=== PATIENT | female | born 1960 | race Caucasian/White ===

== ENCOUNTER 2017-04-21 09:12 | Day surgery (SDC) | payer BC ==
[~2017-04-21 09:12] MED LIST: RINGERS SOLUTION,LACTATED 1,000 ML IV PRN; ceFAZolin SODIUM 2 GM in DEXTROSE 5 % IN WATER 50 ML IV PRN
[2017-04-21] MEDS ORDERED: RINGERS SOLUTION,LACTATED 1,000 ML IV ONE (09:39)
[2017-04-21] MEDS ORDERED: BUPIVACAINE HCL/EPINEPHRINE 50 ML VIAL IJ ONE ×2 (10:31→10:35)
[2017-04-21] MEDS ORDERED: MUPIROCIN 22 APPL TUBE TP ONE (10:31)
[2017-04-21] MEDS ORDERED: RINGERS SOLUTION,LACTATED 1,000 ML IV PRN (11:07)
[2017-04-21] MEDS ORDERED: oxyCODONE HCL/ACETAMINOPHEN 1 TAB TABLET PO ONE (11:30)
[2017-04-21 12:37] VITALS: BP 118/82
--- NOTE | 2017-04-21 13:21 | OR ---
Operative Report - Dictated Report Narrative: OPERATIVE REPORT DATE OF OPERATION: 04/21/2017 PREOPERATIVE DIAGNOSIS: Hidradenitis of the right groin POSTOPERATIVE DIAGNOSIS: Same (pathology pending) OPERATION: Excision lesion right groin (approximate size 2 x 4 cm) SURGEON: Radha Goodman MD ANESTHESIA: MAC/local Shahram Oneill CRNA INDICATIONS FOR PROCEDURE: The patient is a 56-year-old female with apparent hidradenitis of the right groin. The area has become quiescent with antibiotics , however her liver function studies are elevated and she cannot be on suppressive therapy. FINDINGS: Apparent complete gross excision (pathology pending) NARRATIVE OF PROCEDURE: The patient was identified in the holding area. The surgical site was marked. Prior to the administration of anesthetic a multidisciplinary timeout was observed. The patient was placed supine, SCDs were applied, and intravenous sedation administered. The patient's right leg was placed in a stirrup and the perineum prepped with Betadine solution. The right groin was isolated with 4 sterile towels. The remainder of the patient was covered with a sterile disposable drape. An elliptical skin incision was outlined with a marking pen to include a margin of normal-appearing skin. The area was infiltrated with 0.5% Marcaine with epinephrine. The skin incision was made sharply. Dissection was carried into normal appearing subcutaneous tissue with electrocautery until the area was excised cleanly. The specimen was oriented with sutures for pathology. The base of the wound was inspected for hemostasis which appeared complete. After receiving a correct sponge needle and instrument count attention was turned to closing the wound. Subcutaneous tissue was approximated with interrupted sutures of 2-0 chromic the skin was approximated with a running subcuticular suture of 4-0 Vicryl. The operative site was washed and dried. A dressing of folded 4 x 4 and Medipore tape was applied. The operative procedure was terminated at this point. The patient tolerated the anesthetic and procedure well without complication. There was no measurable blood loss. The patient was transferred to the ambulatory surgery area awake and in stable condition. The patient remained stable throughout a period of postoperative observation. She denied incisional discomfort. She was able to tolerate po intake and was up without assistance. I shared the operative findings with her. She was discharged home with instructions to keep the area dry and covered for 48 hours but then she may shower and change the dressing as needed. She was given phone numbers to call prn signs of wound infection or hematoma. She was given a prescription for Percocet 5/325 mg #20 1-2 po Q4-6hrs prn pain. A return office appointment will be made when she is contacted with her pathology report. Reviewed and electronically signed
== END 2017-04-21 09:13 | disposition home or self-care (01) ==
LOC: AMB 09:12
PROVIDERS: ATTEND Surgery
PROC: 0JBC0ZZ Excision of Pelvic Region Subcutaneous Tissue and Fascia, Open Approach (ICD-10-PCS; principal; 2017-04-21 10:15)
DX: L73.2 Hidradenitis suppurativa (principal); L72.0 Epidermal cyst; I10 Essential (primary) hypertension; E78.5 Hyperlipidemia, unspecified; D64.9 Anemia, unspecified; F41.1 Generalized anxiety disorder; Z87.891 Personal history of nicotine dependence; Z68.25 Body mass index [BMI] 25.0-25.9, adult

== ENCOUNTER 2020-02-27 11:12 | Observation (INO) ==
[2020-02-27] MEDS ORDERED: NORMAL SALINE 1,000 ML IV ONE ×2 (11:44→13:19)
--- NOTE | 2020-02-27 11:49 | ERNOTE ---
Medical Problem HPI - Narrative Date of Service: 02/27/20 - General Chief Complaint: Nausea/Vomiting Time Seen by Provider: 02/27/20 11:27 Source: patient, RN notes reviewed, old records Exam Limitations: no limitations - Immun/Allergies/Home Medications Immunizations: IMMUNIZATION HX Immunizations Up to Date Yes History of Influenza Vaccine Yes Hx Pneumococcal Vaccination No Allergies/Adverse Reactions: Allergies Sulfa (Sulfonamide Antibiotics) Allergy (Intermediate, Verified 02/27/20 11:23) Shortness of Breath acetaminophen [From Percocet] Adverse Reaction (Mild, Verified 02/27/20 11:23) Itching oxycodone [From Percocet] Adverse Reaction (Mild, Verified 02/27/20 11:23) Itching Penicillins Adverse Reaction (Mild, Verified 02/27/20 11:23) Itching Home Medications: HOME MEDICATIONS Aspirin [Aspirin EC] 81 mg PO DAILY 04/18/17 [Last Taken Unknown] Cholecalciferol (Vitamin D3) [Vitamin D3] 1,000 unit PO DAILY 04/18/17 [Last Taken Unknown] Loratadine [Claritin] 10 mg PO DAILY 04/18/17 [Last Taken Unknown] Multivitamins [Multivitamin Meredith] 1 cap PO DAILY 04/18/17 [Last Taken Unknown] [place]-3S/Dha/Epa/Fish Oil [Fish Oil 1,200 mg Softgel] 1 ea PO DAILY 08/22/17 [Last Taken Unknown] alprazolam 1 mg tablet 1 mg PO TID PRN #90 tab 07/26/19 [Last Taken Unknown] rosuvastatin 10 mg tablet 10 mg PO DAILY #30 tab 11/15/19 [Last Taken Unknown] - Pain Score Pain Score #1 Pain Score: 0 - History of Present History Narrative: Korin is a 59-year-old female who initially presented to the walk-in clinic for vomiting and tremors but was sent to the emergency department. She reports that her symptoms began approximately 2 weeks ago. She states that she vomits usually just once a day and has no appetite. She reports that she is still trying to eat and has still been having formed bowel movements. She denies any abdominal pain. She reports that she has been checking her temperature and has been afebrile. She states that her tremor seemed worse yesterday than they had been but became severe today. She was laid off from her job at about the time her symptoms began. She states that she has felt depressed. She has not had any changes in medication and denies any sick contacts. Timing: getting worse Review of Systems - Review of Systems Constitutional: Present: fatigue, malaise. Absent: fever, chills EYE: Absent: eye pain, eye discharge ENT: Present: nasal drainage. Absent: ear pain, nose congestion, sore throat Respiratory: Absent: shortness of breath, cough Cardiology: Absent: chest pain, palpitations Gastrointestinal/Abdominal: Present: nausea, vomiting. Absent: diarrhea, constipation, abdominal pain Genitourinary: Absent: dysuria, hematuria Musculoskeletal: Absent: muscle pain, joint pain Skin: Absent: rash, lesions Neurological: Absent: headache, dizziness/light-headedness Endocrine: Present: no symptoms reported Hematologic/Lymphatic: Absent: easy bruising, easy bleeding Psych: Present: depressed. Absent: anxiety Medical History (Last Reviewed 02/27/20 @ 11:48 by Moriah Martines NP) Hypertension (Chronic) Onset Date: ~01/15/14 Hyperlipidemia (Chronic) Onset Date: ~01/15/14 Anxiety Onset Date: Unknown Elevated ALT measurement Onset Date: 10/26/16 Patient was taking terbinafine at time of lab draw. Elevated aspartate aminotransferase level Onset Date: 10/26/16 Patient was taking terbinafine at time of lab draw. Sleep disturbance Onset Date: Unknown Endometriosis Onset Date: ~1993 History of barium enema Onset Date: 09/15/17 Dr. Jersey Blankenship, [facility]. Diverticulosis, moderate tortuosity and elongation of the colonic segments. Tinea unguium Onset Date: ~10/26/16 Surgical History: Surgical History (Last Reviewed 02/27/20 @ 11:48 by Moriah Martines NP) History of adenoidectomy Onset Date: ~1978 History of section History of colonoscopy Onset Date: 09/15/17 Dr. Jersey Blankenship, [facility]. Incomplete. Tortuous colon, Diverticulosis. Barium enema-negative. History of excision of epidermal inclusion cyst Onset Date: 04/21/17 Dr. Kelly Goodman, [facility]. Right groin; dermal inflammation consistent w/ hidradenitis, associated with multiple epidermal inclusion cysts. History of local excision of skin lesion Onset Date: 07/08/11 Right medial chest; dysplastic nevus. History of tonsillectomy Onset Date: ~1978 History of vaginal hysterectomy Onset Date: ~1994 Family History: Family History (Last Reviewed 02/27/20 @ 11:48 by Moriah Martines NP) Father Hypertension Obesity Prostate disease Pacemaker S/P CABG x 5 Brother CHF (congestive heart failure) Myocardial infarction CVA (cerebral vascular accident) Brother Alive and well x 1 Mother , age 62 Myocardial infarction x 3 Heart disease Hypertension Hyperlipemia DVT (deep venous thrombosis) CHF (congestive heart failure) COPD (chronic obstructive pulmonary disease) Family/Other Hyperlipemia Heart disease CVA (cerebral vascular accident) Hypertension Pacemaker Prostate disease Social History: (Last Reviewed 02/27/20 @ 11:48 by Moriah Martines NP) Social History: adopted: No usp: No Marital status: / household members: significant other number of children: 1 current occupational status: employed current occupation: [employer] Highest education level completed: Associate degree: academi Sexually Active: Yes Service: No Tobacco: Smoking Status: Former smoker Alcohol: alcohol intake: current alcohol intake frequency: a few times a week Dietary Habits: caffeine: No Physical Exam - Physical Exam General Appearance: Present: alert, mild distress, anxious, thin Head Exam: Present: normal inspection Eye Exam: Normal inspection: bilateral Neck: Present: normal inspection, nontender, supple, full range of motion. Absent: thyromegaly Respiratory: Present: no respiratory distress, normal breath sounds, no accessory muscle use, lungs clear Cardiovascular/Chest: Present: no murmur, normal peripheral pulses, tachycardia Gastrointestinal/Abdominal: Present: normal bowel sounds, nontender, nondistended, soft Back Exam: Present: normal inspection, normal range of motion, no CVA tenderness Extremity Exam: Present: normal inspection, normal range of motion, no edema Neurological Exam: Present: alert, oriented, normal mood/affect, no motor/sensory deficits, other - Severe tremors present Skin Exam: Present: warm/dry, pallor Progress - Results and Orders Patient's Lab Results:: I have reviewed the patient's lab results. Results and Orders: SARS-CoV-2 PCR test negative - Vital Signs Patient's Vital Signs:: I have reviewed the patient's vital signs. Vital Signs: Vital Signs 02/27/20 11:18 Temperature 36.5 C Pulse Rate 105 H Respiratory Rate 16 Blood Pressure 139/96 H O2 Sat by Pulse Oximetry 96 - Progress/Reassessment Chief Complaint: Nausea/Vomiting Progress:: Improved Progress Note-Subjective: 02/27/20 13:33 The patient has a normal white blood cell count but an elevated lactic acid. Her urine appears as though she has a urinary tract infection, although it is a contaminated specimen. A culture is pending. On further questioning she does admit to having some back pain, which would correlate with pyelonephritis. Her platelet count is 80. Her records do not indicate her having any issues with thrombocytopenia in the past. She also has mildly elevated liver function tests. An amylase and lipase were added to rule out pancreatitis. These were normal. I contacted Dr. Caceres who is the patient's primary care provider. He agreed to admit the patient. She will be started on Levaquin IV and she is going to get Zofran for her nausea as she did just vomit a short while ago. Her second lactic acid and blood cultures are pending. After discussing her lab work, Dr. Caceres and I agreed that she should be tested for COVID-19. She is currently being held in the emergency department pending that result. Departure Clinical Impression: Pyelonephritis, acute - Departure Disposition: Still a patient Condition: Stable Referrals: Josue Caceres DO [Primary Care Provider] -
[2020-02-27 11:56] LABS: Urine Bilirubin 3 mg/dl (NEGATIVE); Urine Blood 25 /ul (NEGATIVE); Urine Ketone 15 mg/dL (NEGATIVE); Urine Protein 100 mg/dL (NEGATIVE); Urine Specific Gravity >=1.030 SP.GR. (1.005-1.010); Urine pH 6.5 pH (5.0-7.0)
[2020-02-27 12:17] LABS: Hemoglobin 14.4 gm/dL (12.5-16.0); Mean Cell Volume 104.7 fl (78-100); Mean Corpuscular Hemoglobin 35.9 pg (27-31); Mean Corpuscular Hgb Conc 34.3 g/dl (32-36); Mean Platelet Volume 9.2 fl (8-12.5); Neutrophil # 5.3 K/mm3 (1.3-6.0); Neutrophil % 82.3 % (42-75.0); Red Blood Count 4.01 M/mm3 (4.2-5.4); Red Cell Distribution Width 14.2 % (11.5-14.0); White Blood Count 6.5 K/mm3 (4.0-10.5)
[2020-02-27 12:19] LABS: Platelet Count 80 K/mm3 (150-450)
[2020-02-27 12:27] LABS: Urine Appearance Cloudy (CLEAR); Urine Color Dark Yellow; Urine Nitrite Positive (NEGATIVE)
[2020-02-27 12:27] LABS: Albumin * 3.7 gm/dl (3.4-5.0); Anion Gap 16.8 mmol/L (6.8-13.8); BUN/Creatinine Ratio 10.1 (9.0-21.6); Bilirubin, Total 1.1 mg/dL (0.0-1.1); Ca. Corrected For Albumin 9.3 mg/dL (8.4-10.2); Calcium * 9.4 mg/dL (7.9-10.9); Carbon Dioxide 30.5 mmol/L (24-32.6); Potassium 3.3 mmol/L (3.4-4.6); T4 Free * 0.76 ng/dL (0.76-1.46); TSH * 1.563 uIU/mL (0.358-3.74); Total Protein 8.2 gm/dL (6.2-8.2)
[2020-02-27 12:28] LABS: Urine Bacteria 4+; Urine RBC 0-5 /hpf (0-5); Urine WBC 25-50 /hpf (0-5)
[2020-02-27 12:45] LABS: Amylase * 69 U/L (25-115); Lipase 378 U/L (73-393)
[2020-02-27] MEDS ORDERED: ONDANSETRON HCL/PF 2 MG/ML VIAL IV ONE (13:20)
[2020-02-27] MEDS ORDERED: LEVOFLOXACIN IN DEXTROSE 5 % 750 MG/150 ML BAG IV ONE (13:20)
[2020-02-27] MEDS ORDERED: ONDANSETRON HCL/PF 2 MG/ML VIAL IV PRN (16:08)
--- NOTE | 2020-02-27 16:13 | HP ---
Chief Complaint - Chief Complaint Date of Service: 02/27/20 Time of Service: 16:10 Chief Complaint: Nausea, vomiting, tremors History of Present Illness: Korin reports for the past two weeks she has had progressive nausea and vomiting. Emesis was recent food. She denies green or bloody emesis. She reports less bowel movements but no blood or black stool. She denies fever or chills but recently has had tremors. Food made her symptoms worse. She denies pain. No urinary frequency, urgency, or dysuria. No flank pain. No respiratory symptoms. In the ER her work up was positive for elevated liver enzymes 100-200 range and UA was suspicious of UTI. She as started on levaquin and give fluids. She was given zofran for nausea. Medical History (Last Reviewed 02/27/20 @ 16:03 by Jameson Narayan RN) Hypertension (Chronic) Onset Date: ~01/15/14 Hyperlipidemia (Chronic) Onset Date: ~01/15/14 Anxiety Onset Date: Unknown Elevated ALT measurement Onset Date: 10/26/16 Patient was taking terbinafine at time of lab draw. Elevated aspartate aminotransferase level Onset Date: 10/26/16 Patient was taking terbinafine at time of lab draw. Sleep disturbance Onset Date: Unknown Endometriosis Onset Date: ~1993 History of barium enema Onset Date: 09/15/17 Dr. Jersey Blankenship [facility]. Diverticulosis, moderate tortuosity and elongation of the colonic segments. Tinea unguium Onset Date: ~10/26/16 Surgical History: Surgical History (Last Reviewed 02/27/20 @ 16:03 by Jameson Narayan RN) History of adenoidectomy Onset Date: ~1978 History of section History of colonoscopy Onset Date: 09/15/17 [facility]. Incomplete. Tortuous colon, Diverticulosis. Barium enema-negative. History of excision of epidermal inclusion cyst Onset Date: 04/21/17 [facility]. Right groin; dermal inflammation consistent w/ hidradenitis, associated with multiple epidermal inclusion cysts. History of local excision of skin lesion Onset Date: 07/08/11 Right medial chest; dysplastic nevus. History of tonsillectomy Onset Date: ~1978 History of vaginal hysterectomy Onset Date: ~1994 Family History: Family History (Last Reviewed 02/27/20 @ 16:03 by Jameson Narayan RN) Father Hypertension Obesity Prostate disease Pacemaker S/P CABG x 5 Brother CHF (congestive heart failure) Myocardial infarction CVA (cerebral vascular accident) Brother Alive and well x 1 Mother , age 62 Myocardial infarction x 3 Heart disease Hypertension Hyperlipemia DVT (deep venous thrombosis) CHF (congestive heart failure) COPD (chronic obstructive pulmonary disease) Family/Other Hyperlipemia Heart disease CVA (cerebral vascular accident) Hypertension Pacemaker Prostate disease Social History: (Last Reviewed 02/27/20 @ 11:48 by Moriah Martines NP) Social History: adopted: No long-term: No Marital status: / household members: significant other number of children: 1 current occupational status: employed current occupation: [employer] Highest education level completed: Associate degree: academi Sexually Active: Yes Service: No Tobacco: Smoking Status: Former smoker Alcohol: alcohol intake: current alcohol intake frequency: a few times a week Dietary Habits: caffeine: No Review Of Systems (GEN) - Review of Systems Generalized/Overall Review: Present: Weakness. Absent: Chills, Fever EENTM: Present: No Symptoms Reported Respiratory: Absent: Cough, Shortness of Breath Cardiac: Absent: Chest Pain, Palpitations Abdominal: Present: Nausea, Vomiting. Absent: Hematemesis, Abdominal Pain, Constipation, Diarrhea, Melena, Bright blood from rectum Genitourinary: Absent: Burning, Itching, Urgency, Frequency, Hesitancy, Incontinent, Retention, Hematuria, Dysuria, Polyuria, Oliguria, Anuria Musculoskeletal: Absent: Joint Pain, Back Pain Neurological: Present: Anxiety. Absent: Headache Skin: Absent: Lesions, Lumps, Rash Endocrine: Present: No Symptoms Reported Immunizations: IMMUNIZATION HX Immunizations Up to Date Yes History of Influenza Vaccine Yes Hx Pneumococcal Vaccination No Allergies/Adverse Reactions: Allergies Allergy/AdvReac Type Severity Reaction Status Date / Time Sulfa (Sulfonamide Allergy Intermediate Shortness Verified 02/27/20 16:02 Antibiotics) of Breath acetaminophen [From Percocet] AdvReac Mild Itching Verified 02/27/20 16:02 oxycodone [From Percocet] AdvReac Mild Itching Verified 02/27/20 16:02 Penicillins AdvReac Mild Itching Verified 02/27/20 16:02 Home Medications: HOME MEDICATIONS Aspirin [Aspirin EC] 81 mg PO DAILY 04/18/17 [Last Taken 02/20/20] Cholecalciferol (Vitamin D3) [Vitamin D3] 1,000 unit PO DAILY 04/18/17 [Last Taken 02/20/20] Multivitamins [Multivitamin Meredith] 1 cap PO DAILY 04/18/17 [Last Taken 02/20/20] [place]-3S/Dha/Epa/Fish Oil [Fish Oil 1,200 mg Softgel] 1 ea PO DAILY 08/22/17 [Last Taken 02/20/20] alprazolam 1 mg tablet 1 mg PO TID PRN #90 tab 07/26/19 [Last Taken 02/27/20 08:00] rosuvastatin 10 mg tablet 10 mg PO DAILY #30 tab 11/15/19 [Last Taken 02/26/20 20:00] Exam - Exam Vital Signs: Vital Signs - Last Taken Temp 37.2 C 02/27/20 15:41 Pulse 97 02/27/20 15:41 Resp 20 02/27/20 15:41 BP 132/80 02/27/20 15:41 Pulse Ox 98 02/27/20 15:41 Constitutional: Present: Alert, Oriented x3, Cooperative, Other - rigor ENT Exam: Present: normal ENT inspection Eye Exam: bilateral eye: normal inspection Respiratory: Present: lungs clear, normal breath sounds Cardiovascular/Chest: Present: regular rate, rhythm, no murmur Peripheral Pulses: radial (R): 2+, radial (L): 2+ Abdomen: Present: Normal bowel sounds, soft, nontender, nondistended, no hepatospenomegaly Skin Exam: Present: normal color, warm/dry, no cyanosis Neurologic: Present: alert, normal mood/affect, oriented x 3 Eye contact: Present: cooperative, normal speech Thoughts: Present: normal thought pattern, no apparent hallucination Diagnostic Studies: Abnormal Lab Results 02/27/20 02/27/20 02/27/20 Range/Units 11:28 11:55 11:55 RBC 4.01 L (4.2-5.4) M/mm3 MCV 104.7 H (78-100) fl MCH 35.9 H (27-31) pg RDW 14.2 H (11.5-14.0) % Plt Count 80 L (150-450) K/mm3 Immature Gran % (Auto) 0.50 H (0.001-0.429) % Neutrophils % 82.3 H (42-75.0) % Lymphocytes % 8.2 L (20-51) % Lymphocytes # 0.53 L (1.5-3.5) k/mm3 Sodium 143 H (132-142) mmol/L Plasma Sodium 144 H (130-142) mmol/L Potassium 3.3 L (3.4-4.6) mmol/L Anion Gap 16.8 H (6.8-13.8) mmol/L Random Glucose 133 H (70-110) mg/dL Lactic Acid, Venous (0.4-2.0) mmol/L AST 249 H (0-48) U/L ALT 119 H (19-67) U/L Urine Protein 100 H (NEGATIVE) mg/dL Urine Blood 25 H (NEGATIVE) /ul Urine Nitrate Positive H (NEGATIVE) Urine Bilirubin 3 H (NEGATIVE) mg/dl Urine Ictotest Positive H (NEGATIVE) Prot Sulfosalicylic Acd 3+ H (0) mg/dL Urine Urobilinogen 2.0 H (NORMAL) EU/dl Urine WBC 25-50 H (0-5) /hpf Ur Epithelial Cells >25 H (0-5) /hpf Urine Bacteria 4+ H (NONE) 02/27/20 Range/Units 11:55 RBC (4.2-5.4) M/mm3 MCV (78-100) fl MCH (27-31) pg RDW (11.5-14.0) % Plt Count (150-450) K/mm3 Immature Gran % (Auto) (0.001-0.429) % Neutrophils % (42-75.0) % Lymphocytes % (20-51) % Lymphocytes # (1.5-3.5) k/mm3 Sodium (132-142) mmol/L Plasma Sodium (130-142) mmol/L Potassium (3.4-4.6) mmol/L Anion Gap (6.8-13.8) mmol/L Random Glucose (70-110) mg/dL Lactic Acid, Venous 2.2 H* (0.4-2.0) mmol/L AST (0-48) U/L ALT (19-67) U/L Urine Protein (NEGATIVE) mg/dL Urine Blood (NEGATIVE) /ul Urine Nitrate (NEGATIVE) Urine Bilirubin (NEGATIVE) mg/dl Urine Ictotest (NEGATIVE) Prot Sulfosalicylic Acd (0) mg/dL Urine Urobilinogen (NORMAL) EU/dl Urine WBC (0-5) /hpf Ur Epithelial Cells (0-5) /hpf Urine Bacteria (NONE) Laboratory Results WBC 6.5 K/mm3 (4.0-10.5) 02/27/20 11:55 RBC 4.01 M/mm3 (4.2-5.4) L 02/27/20 11:55 Hgb 14.4 gm/dL (12.5-16.0) 02/27/20 11:55 Hct 42.0 % (37.0-47.0) 02/27/20 11:55 MCV 104.7 fl (78-100) H 02/27/20 11:55 MCH 35.9 pg (27-31) H 02/27/20 11:55 MCHC 34.3 g/dl (32-36) 02/27/20 11:55 RDW 14.2 % (11.5-14.0) H 02/27/20 11:55 Plt Count 80 K/mm3 (150-450) L 02/27/20 11:55 MPV 9.2 fl (8-12.5) 02/27/20 11:55 Immature Gran % (Auto) 0.50 % (0.001-0.429) H 02/27/20 11:55 Immature Gran # (Auto) 0.03 K/mm3 (0.000-0.0310) 02/27/20 11:55 Neutrophils % 82.3 % (42-75.0) H 02/27/20 11:55 Lymphocytes % 8.2 % (20-51) L 02/27/20 11:55 Monocytes % 8.5 % (0.0-9) 02/27/20 11:55 Eosinophils % 0.2 % (0.0-3.0) 02/27/20 11:55 Basophils % 0.3 % (0.0-1.0) 02/27/20 11:55 Nucleated RBC % 0.0 k/mm3 (0-1) 02/27/20 11:55 Neutrophils # 5.3 K/mm3 (1.3-6.0) 02/27/20 11:55 Lymphocytes # 0.53 k/mm3 (1.5-3.5) L 02/27/20 11:55 Monocytes # 0.6 k/mm3 (0.0-1.0) 02/27/20 11:55 Eosinophils # 0.0 k/mm3 (0.0-0.7) 02/27/20 11:55 Absolute Basophils 0.0 k/mm3 (0.0-0.1) 02/27/20 11:55 Sodium 143 mmol/L (132-142) H 02/27/20 11:55 Plasma Sodium 144 mmol/L (130-142) H 02/27/20 11:55 Potassium 3.3 mmol/L (3.4-4.6) L 02/27/20 11:55 Chloride 99 mmol/L (97-106) 02/27/20 11:55 Carbon Dioxide 30.5 mmol/L (24-32.6) 02/27/20 11:55 Anion Gap 16.8 mmol/L (6.8-13.8) H 02/27/20 11:55 BUN 7 mg/dL (3-23) 02/27/20 11:55 Creatinine 0.69 mg/dL (0.4-1.4) 02/27/20 11:55 Est GFR (Non-Af Amer) 93 mL/min (60-130) 02/27/20 11:55 BUN/Creatinine Ratio 10.1 (9.0-21.6) 02/27/20 11:55 Random Glucose 133 mg/dL (70-110) H 02/27/20 11:55 Lactic Acid, Venous 2.0 mmol/L (0.4-2.0) 02/27/20 15:15 Calcium 9.4 mg/dL (7.9-10.9) 02/27/20 11:55 Calcium Adj for Albumin 9.3 mg/dL (8.4-10.2) 02/27/20 11:55 Total Bilirubin 1.1 mg/dL (0.0-1.1) 02/27/20 11:55 AST 249 U/L (0-48) H 02/27/20 11:55 ALT 119 U/L (19-67) H 02/27/20 11:55 Alkaline Phosphatase 85 U/L (50-170) 02/27/20 11:55 Total Protein 8.2 gm/dL (6.2-8.2) 02/27/20 11:55 Albumin 3.7 gm/dl (3.4-5.0) 02/27/20 11:55 Amylase 69 U/L (25-115) 02/27/20 11:45 Lipase 378 U/L (73-393) 02/27/20 11:45 TSH 1.563 uIU/mL (0.358-3.74) 02/27/20 11:55 Free T4 0.76 ng/dL (0.76-1.46) 02/27/20 11:55 Urine Color Dark yellow 02/27/20 11:28 Urine Appearance Cloudy (CLEAR) 02/27/20 11:28 Urine pH 6.5 pH (5.0-7.0) 02/27/20 11:28 Ur Specific [place] >=1.030 SP.GR. (1.005-1.010) 02/27/20 11:28 Urine Protein 100 mg/dL (NEGATIVE) H 02/27/20 11:28 Urine Glucose (UA) Negative mg/dL (NEGATIVE) 02/27/20 11:28 Urine Ketones 15 mg/dL (NEGATIVE) 02/27/20 11:28 Urine Blood 25 /ul (NEGATIVE) H 02/27/20 11:28 Urine Nitrate Positive (NEGATIVE) H 02/27/20 11:28 Urine Bilirubin 3 mg/dl (NEGATIVE) H 02/27/20 11:28 Urine Ictotest Positive (NEGATIVE) H 02/27/20 11:28 Prot Sulfosalicylic Acd 3+ mg/dL (0) H 02/27/20 11:28 Urine Urobilinogen 2.0 EU/dl (NORMAL) H 02/27/20 11:28 Ur Leukocyte Esterase Negative /ul (NEGATIVE) 02/27/20 11:28 Urine RBC 0-5 /hpf (0-5) 02/27/20 11:28 Urine WBC 25-50 /hpf (0-5) H 02/27/20 11:28 Ur Epithelial Cells >25 /hpf (0-5) H 02/27/20 11:28 Urine Bacteria 4+ (NONE) H 02/27/20 11:28 Urine Culture Comments Culture to follow 02/27/20 11:28 Ethyl Alcohol Less than 3.0 mg/dL (0.0-10.0) 02/27/20 11:45 SARS-CoV-2 (PCR) Not detected (ND) 02/27/20 13:25 Assessment/Plan - Narrative Narrative: Korin is a 59 yo female with urinary tract infection and possible pyelonephritis. Her symptoms are atypical in that she mostly has nausea and vomiting with rigors. She reported to the ER that she has had some flank pain and she has had darkened urine. Her UA is concerning with nitrates and LE and 4+ bacteria. There are numerous epithelials so some contaminate with collection as well, but will follow urine culture to treat. Will start on levaquin. Will trend elevated liver enzymes, although this may be further indication of pyelonephritis. She does appears significantly ill, so I believe this is more than just a typical UTI as she has significant rigors and does not look well. Will admit to observation at this time and hope with fluids and starting antibiotics that she may be improved enough to be discharged to home tomorrow afternoon. - Assessment/Plan (1) UTI (urinary tract infection) Problem: Acute Qualifiers: Urinary tract infection type: site unspecified Hematuria presence: without hematuria Qualified Code(s): N39.0 - Urinary tract infection, site not specified (2) Pyelonephritis, acute Problem: Suspected (3) Elevated liver enzymes Problem: Acute
[2020-02-27] MEDS ORDERED: ROSUVASTATIN CALCIUM 10 MG TABLET PO SCH (21:00)
[2020-02-27] MEDS: ALPRAZolam 1 MG TABLET PO PRN (21:18)
[2020-02-28 08:51] LABS: Albumin * 3.1 gm/dl (3.4-5.0); Anion Gap 13.2 mmol/L (6.8-13.8); BUN/Creatinine Ratio 5.1 (9.0-21.6); Bilirubin, Total 1.1 mg/dL (0.0-1.1); Ca. Corrected For Albumin 9.5 mg/dL (8.4-10.2); Calcium * 9.1 mg/dL (7.9-10.9); Potassium 3.2 mmol/L (3.4-4.6); Total Protein 7.1 gm/dL (6.2-8.2)
[2020-02-28 09:00] LABS: Hematocrit 36.7 % (37.0-47.0); Hemoglobin 12.5 gm/dL (12.5-16.0); Mean Cell Volume 106.7 fl (78-100); Mean Corpuscular Hemoglobin 36.3 pg (27-31); Mean Corpuscular Hgb Conc 34.1 g/dl (32-36); Mean Platelet Volume 9.6 fl (8-12.5); Neutrophil # 2.6 K/mm3 (1.3-6.0); Neutrophil % 59.3 % (42-75.0); Red Blood Count 3.44 M/mm3 (4.2-5.4); White Blood Count 4.4 K/mm3 (4.0-10.5)
[2020-02-28] MEDS ORDERED: MULTIVITAMINS 1 CAP CAPSULE PO SCH (09:00)
[2020-02-28] MEDS ORDERED: CHOLECALCIFEROL 1,000 UNIT CAPSULE PO SCH (09:00)
[2020-02-28] MEDS ORDERED: ASPIRIN 81 MG TABLET.DR PO SCH (09:00)
[2020-02-28] MEDS: ALPRAZolam 1 MG TABLET PO PRN (09:16)
[2020-02-28 09:23] LABS: Platelet Count 71 K/mm3 (150-450)
[2020-02-28] MEDS ORDERED: LEVOFLOXACIN 750 MG TABLET PO SCH (11:00)
--- NOTE | 2020-02-28 13:02 | DS ---
(1) UTI (urinary tract infection) Problem: Acute Qualifiers: Urinary tract infection type: site unspecified Hematuria presence: without hematuria Qualified Code(s): N39.0 - Urinary tract infection, site not specified (2) Pyelonephritis, acute Problem: Suspected (3) Elevated liver enzymes Problem: Acute Date of Discharge:: 02/28/20 Hospital Course: Korin was admitted to observation for suspected pyelonephritis. She was treated with Levaquin 750mg daily and improved. She was given IV fluids and zofran for nausea and is feeling ready for home discharge today. She has not had emesis in the hospital and her rigors have improved. Her Urine culture is growing gram negative megan. Will continue levaquin 750mg PO Daily for 7 days to cover possible pyelonephritis as ill as she appeared on presentation. Procedures Performed: none Results and Findings: Pending Mircobiology Results 02/27/20 12:40 Blood Blood Culture - Preliminary NO GROWTH 24 HOURS 02/27/20 11:55 Blood Blood Culture - Preliminary NO GROWTH 24 HOURS 02/27/20 11:28 Urine,Clean Catch Urine Culture - Preliminary Gram Negative Bacilli Lab Pending Results 02/27/20 11:28: Urine Color Dark yellow, Urine Appearance Cloudy, Urine pH 6.5, Ur Specific [place] >=1.030, Urine Protein 100 H, Urine Glucose (UA) Negative, Urine Ketones 15, Urine Blood 25 H, Urine Nitrate Positive H, Urine Bilirubin 3 H, Urine Ictotest Positive H, Prot Sulfosalicylic Acd 3+ H, Urine Urobilinogen 2.0 H, Ur Leukocyte Esterase Negative, Urine RBC 0-5, Urine WBC 25-50 H, Ur Epithelial Cells >25 H, Urine Bacteria 4+ H, Urine Culture Comments Culture to follow 02/27/20 11:45: Amylase 69, Lipase 378, Ethyl Alcohol Less than 3.0 02/27/20 11:55: WBC 6.5, RBC 4.01 L, Hgb 14.4, Hct 42.0, MCV 104.7 H, MCH 35.9 H, MCHC 34.3, RDW 14.2 H, Plt Count 80 L, MPV 9.2, Immature Gran % (Auto) 0.50 H, Immature Gran # (Auto) 0.03, Neutrophils % 82.3 H, Lymphocytes % 8.2 L, Monocytes % 8.5, Eosinophils % 0.2, Basophils % 0.3, Nucleated RBC % 0.0, Neutrophils # 5.3, Lymphocytes # 0.53 L, Monocytes # 0.6, Eosinophils # 0.0, Absolute Basophils 0.0 02/27/20 11:55: Sodium 143 H, Plasma Sodium 144 H, Potassium 3.3 L, Chloride 99, Carbon Dioxide 30.5, Anion Gap 16.8 H, BUN 7, Creatinine 0.69, Est GFR (Non-Af Amer) 93, BUN/Creatinine Ratio 10.1, Random Glucose 133 H, Calcium 9.4, Calcium Adj for Albumin 9.3, Total Bilirubin 1.1, AST 249 H, ALT 119 H, Alkaline Phosphatase 85, Total Protein 8.2, Albumin 3.7, TSH 1.563, Free T4 0.76 02/27/20 11:55: Lactic Acid, Venous 2.2 H* 02/27/20 13:25: SARS-CoV-2 (PCR) Not detected 02/27/20 15:15: Lactic Acid, Venous 2.0 02/28/20 08:32: WBC 4.4 D, RBC 3.44 L, Hgb 12.5, Hct 36.7 L, MCV 106.7 H, MCH 36.3 H, MCHC 34.1, RDW 14.0, Plt Count 71 L, MPV 9.6, Immature Gran % (Auto) 0.5 0 H, Immature Gran # (Auto) 0.02, Neutrophils % 59.3, Lymphocytes % 22.1, Monocytes % 16.9 H, Eosinophils % 0.7, Basophils % 0.5, Nucleated RBC % 0.0, Neutrophils # 2.6, Lymphocytes # 0.97 L, Monocytes # 0.7, Eosinophils # 0.0, Absolute Basophils 0.0 02/28/20 08:32: Sodium 137, Plasma Sodium 138, Potassium 3.2 L, Chloride 100, Carbon Dioxide 27.0, Anion Gap 13.2, BUN 4, Creatinine 0.78, Est GFR (Non-Af Amer) 81, BUN/Creatinine Ratio 5.1 L, Random Glucose 168 H, Calcium 9.1, Calcium Adj for Albumin 9.5, Total Bilirubin 1.1, AST 158 H, ALT 82 H, Alkaline Phosphatase 68, Total Protein 7.1, Albumin 3.1 L Discharge Location: Home Disposition: Home self-care Condition: Good Discharge Activity: Activity as tolerated Discharge Diet: General/regular food Referrals: Josue Caceres DO [Primary Care Provider] - One Week Problem Oriented Discharge Instructions to Patient/Family: Pyelonephritis, Adult, [id number] Prescriptions (Any new or edited meds): Levofloxacin [Levaquin] 750 mg PO DAILY@1400 #7 tab Transmission Status: Pending to [place], [place] Ondansetron HCl [Zofran] 8 mg PO Q6H #30 tab Transmission Status: Pending to [facility], [place], [place] Complete Home Medications List: Complete Home Medication List: Aspirin [Aspirin EC] 81 mg PO DAILY 04/18/17 Cholecalciferol (Vitamin D3) [Vitamin D3] 1,000 unit PO DAILY 04/18/17 Multivitamins [Multivitamin Meredith] 1 cap PO DAILY 04/18/17 [place]-3S/Dha/Epa/Fish Oil [Fish Oil 1,200 mg Softgel] 1 ea PO DAILY 08/22/17 alprazolam 1 mg tablet 1 mg PO TID PRN #90 tab 07/26/19 rosuvastatin 10 mg tablet 10 mg PO DAILY #30 tab 11/15/19 Levofloxacin [Levaquin] 750 mg PO DAILY@1400 #7 tab 02/28/20 Ondansetron HCl [Zofran] 8 mg PO Q6H #30 tab 02/28/20
[2020-02-28 13:25] VITALS: BP 140/86
== END 2020-02-28 13:50 | disposition home or self-care (01) ==
LOC: ER 11:12 → MS 11:12
PROVIDERS: ADMIT Family Medicine; ATTEND Family Medicine
CPT/HCPCS: 36415; 80053; 81001; 82150; 83605; 83690; 84439; 84443; 85025; 87040; 87086; 96365; 96366; 96375; 96376; 99285; C9803; G0378; J2405

== ENCOUNTER 2020-02-29 14:57 | Inpatient (IN) ==
[2020-02-29] MEDS ORDERED: ONDANSETRON HCL/PF 2 MG/ML VIAL IV ONE (15:06)
[2020-02-29] MEDS ORDERED: LORazepam 2 MG/ML DISP.SYRIN IV PRN ×3 (15:12→17:15)
[2020-02-29 15:13] LABS: Hematocrit 38.2 % (37.0-47.0); Hemoglobin 12.8 gm/dL (12.5-16.0); Mean Cell Volume 107.6 fl (78-100); Mean Corpuscular Hemoglobin 36.1 pg (27-31); Mean Corpuscular Hgb Conc 33.5 g/dl (32-36); Mean Platelet Volume 9.5 fl (8-12.5); Neutrophil # 3.1 K/mm3 (1.3-6.0); Neutrophil % 62.2 % (42-75.0); Platelet Count 80 K/mm3 (150-450); Red Blood Count 3.55 M/mm3 (4.2-5.4); Red Cell Distribution Width 13.4 % (11.5-14.0)
--- NOTE | 2020-02-29 15:21 | ERNOTE ---
Neuro HPI ER Record Presenting Symptoms: other Time Seen by Provider: 02/29/20 14:57 Source: family, EMS Exam Limitations: clinical condition Immunizations: IMMUNIZATION HX Immunizations Up to Date Yes History of Influenza Vaccine More Information Required Hx Pneumococcal Vaccination More Information Required Allergies/Adverse Reactions: Allergies Allergy/AdvReac Type Severity Reaction Status Date / Time Sulfa (Sulfonamide Allergy Intermediate Shortness Verified 02/27/20 16:02 Antibiotics) of Breath acetaminophen [From Percocet] AdvReac Mild Itching Verified 02/27/20 16:02 oxycodone [From Percocet] AdvReac Mild Itching Verified 02/27/20 16:02 Penicillins AdvReac Mild Itching Verified 02/27/20 16:02 Home Medications: HOME MEDICATIONS Aspirin [Aspirin EC] 81 mg PO DAILY 04/18/17 [Last Taken 02/20/20] Cholecalciferol (Vitamin D3) [Vitamin D3] 1,000 unit PO DAILY 04/18/17 [Last Taken 02/20/20] Multivitamins [Multivitamin Meredith] 1 cap PO DAILY 04/18/17 [Last Taken 02/20/20] [place]-3S/Dha/Epa/Fish Oil [Fish Oil 1,200 mg Softgel] 1 ea PO DAILY 08/22/17 [Last Taken 02/20/20] alprazolam 1 mg tablet 1 mg PO TID PRN #90 tab 07/26/19 [Last Taken 02/27/20 08:00] rosuvastatin 10 mg tablet 10 mg PO DAILY #30 tab 11/15/19 [Last Taken 02/26/20 20:00] Levofloxacin [Levaquin] 750 mg PO DAILY@1400 #7 tab 02/28/20 [Last Taken Unknown] Ondansetron HCl [Zofran] 8 mg PO Q6H #30 tab 02/28/20 [Last Taken Unknown] - History of Present Illness Narrative: Patient is brought to the ER by EMS for new onset seizure. Patient was recently admitted to the hospital overnight for a UTI and associated nausea and vomiting, she was discharged yesterday. According to her significant other she is a heavy alcohol drinker, usually drinks a bottle of whiskey in 2 days, she has had no alcohol in the hospital and none since coming home yesterday. He last talked to her around 1130, when he came home around 1400 he found unresponsive laying next to the couch, as he was over the touch she started to have a generalized seizure lasted less than a minute. EMS was called, patient remained unresponsive. During the ambulance ride she had another 1 minute generalized tonic-clonic seizure and received 5 mg of Versed IV. According to her significant other she has no prior history of seizures, there have been some relationship tension due to her alcoholism recently, but he is not aware of her being suicidal, there were no medication bottles laying around. Date (Duration): 02/29/20 Time (Timing): 14:00 Review of Systems - Narrative Narrative: limited as patient is unresponsive - Review of Systems Constitutional: Present: recent illness Medical History (Last Reviewed 02/29/20 @ 15:19 by Genesis Loazno MD) Hypertension (Chronic) Onset Date: ~01/15/14 Hyperlipidemia (Chronic) Onset Date: ~01/15/14 Anxiety Onset Date: Unknown Elevated ALT measurement Onset Date: 10/26/16 Patient was taking terbinafine at time of lab draw. Elevated aspartate aminotransferase level Onset Date: 10/26/16 Patient was taking terbinafine at time of lab draw. Sleep disturbance Onset Date: Unknown Endometriosis Onset Date: ~1993 History of barium enema Onset Date: 09/15/17 Dr. Jersey Blankenship [facility]. Diverticulosis, moderate tortuosity and elongation of the colonic segments. Tinea unguium Onset Date: ~10/26/16 Surgical History: Surgical History (Last Reviewed 02/29/20 @ 15:19 by Genesis Lozano MD) History of adenoidectomy Onset Date: ~1978 History of section History of colonoscopy Onset Date: 09/15/17 Dr. Jersey Blankenship [facility]. Incomplete. Tortuous colon, Diverticulosis. Barium enema-negative. History of excision of epidermal inclusion cyst Onset Date: 04/21/17 Dr. Kelly Goodman [facility]. Right groin; dermal inflammation consistent w/ hidradenitis, associated with multiple epidermal inclusion cysts. History of local excision of skin lesion Onset Date: 07/08/11 Right medial chest; dysplastic nevus. History of tonsillectomy Onset Date: ~1978 History of vaginal hysterectomy Onset Date: ~1994 Family History: Family History (Last Reviewed 02/27/20 @ 16:03 by Jameson Narayan RN) Father Hypertension Obesity Prostate disease Pacemaker S/P CABG x 5 Brother CHF (congestive heart failure) Myocardial infarction CVA (cerebral vascular accident) Brother Alive and well x 1 Mother , age 62 Myocardial infarction x 3 Heart disease Hypertension Hyperlipemia DVT (deep venous thrombosis) CHF (congestive heart failure) COPD (chronic obstructive pulmonary disease) Family/Other Hyperlipemia Heart disease CVA (cerebral vascular accident) Hypertension Pacemaker Prostate disease Social History: (Last Updated 02/29/20 @ 15:20 by Genesis Lozano MD) Social History: adopted: No [place] [facility]: No Marital status: / household members: significant other number of children: 1 current occupational status: employed current occupation: [employer] Highest education level completed: Associate degree: academi Sexually Active: Yes Service: No Tobacco: Smoking Status: Former smoker Alcohol: alcohol intake: current Alcohol type: hard liquor alcohol intake frequency: 3 or more drinks per day Dietary Habits: caffeine: No Physical Exam - Physical Exam General Appearance: Present: wd/wn, no apparent distress, lethargic Head Exam: Present: normal inspection, no evidence of injury Eye Exam: Normal inspection: bilateral, PERRL: bilateral Ears, Nose, Throat: Present: other - abrasion and swelling left lower lip Respiratory: Present: no respiratory distress, normal breath sounds, no accessory muscle use, lungs clear Cardiovascular/Chest: Present: regular rate, rhythm, no murmur Gastrointestinal/Abdominal: Present: normal bowel sounds, nontender, nondistended, soft Extremity Exam: Present: no edema, other - no obvious injury Neurological Exam: Present: other - lethargic, not following commands. Absent: alert, oriented Skin Exam: Present: normal color, warm/dry [place] Coma Scale - Assess Eye Opening: Spontaneous Motor: None Verbal: Incomprehensible - Total Coma Scale Total: 7 Progress - Results and Orders Patient's Lab Results:: I have reviewed the patient's lab results. - Vital Signs Patient's Vital Signs:: I have reviewed the patient's vital signs. Vital Signs: Vital Signs 02/29/20 14:58 Temperature 36.0 C Pulse Rate 115 H Respiratory Rate 25 H Blood Pressure 144/80 H O2 Sat by Pulse Oximetry 98 - CT/Ultrasound CT/Ultrasound Narrative: CT head: IMPRESSION: No acute intracranial hemorrhage or mass effect. - Progress/Reassessment Chief Complaint: Seizure Activity Progress Note-Subjective: 02/29/20 15:[address] is alert, opens eyes spontaneously, not following commands, but moves both arms, mumbles GCS 11 02/29/20 16:42 discussed with son (Shen Jimenez), patient will most likely need to get admitted as she is still post ictal 02/29/20 16:[address] Burkett, okay to admit for new onset seizure most likely due to ETOH withdrawal use ativan on ETOH withdrawal protocol. Utox positive for benzos (patient take xanax) and opioids (not on medication list or on meds given in hospital) 02/29/20 17:04 patient alert, smile equal, uses both arms, doesn't follow commands, inappropiate words but clear Departure Clinical Impression: New onset seizure, ETOH abuse - Departure Disposition: Still a patient Condition: Stable
[2020-02-29 15:27] LABS: Albumin * 3.4 gm/dl (3.4-5.0); Anion Gap 23.5 mmol/L (6.8-13.8); BUN/Creatinine Ratio 3.9 (9.0-21.6); CRP 0.6 mg/dL (0.0-0.9); Ca. Corrected For Albumin 9.4 mg/dL (8.4-10.2); Calcium * 9.2 mg/dL (7.9-10.9); Carbon Dioxide 18.4 mmol/L (24-32.6); Potassium 2.9 mmol/L (3.4-4.6); Total Protein 7.6 gm/dL (6.2-8.2)
[2020-02-29 16:14] LABS: Cocaine Ur Negative (NEGATIVE); Urine Barbiturate Negative (NEGATIVE); Urine PCP Negative (NEGATIVE); Urine THC Negative (NEGATIVE)
[2020-02-29] MEDS ORDERED: POTASSIUM CHLORIDE IN WATER 100 ML IV ONE (16:18)
[2020-02-29 16:24] LABS: Urine Appearance Clear (CLEAR); Urine Color Yellow
[2020-02-29 16:25] LABS: Urine Blood 25 /ul (NEGATIVE); Urine Ketone 50 mg/dL (NEGATIVE); Urine Nitrite Negative (NEGATIVE); Urine Protein 100 mg/dL (NEGATIVE); Urine Urobilinogen Normal (NORMAL); Urine WBC 0-5 /hpf (0-5)
[2020-02-29 16:26] LABS: Urine Bacteria None Seen
[2020-02-29 16:30] LABS: Urine Bilirubin Negative (NEGATIVE); Urine RBC 0-5 /hpf (0-5)
[2020-02-29 16:33] LABS: Urine Benzodiazepines Positive (NEGATIVE); Urine Opiates Positive (NEGATIVE)
[2020-02-29] MEDS: NORMAL SALINE 1,000 ML IV ONE (17:02)
[2020-02-29] MEDS ORDERED: MULTIVIT INFUSN,ADULT 4,VIT K 10 ML, THIAMINE HCL 100 MG in NORMAL SALINE 1,000 ML IV ONE (17:15)
[2020-02-29] MEDS: LORazepam 2 MG/ML DISP.SYRIN IV PRN ×3 (17:53→22:39)
[2020-02-29] MEDS: ONDANSETRON HCL 8 MG TABLET PO SCH (22:39)
[2020-02-29] MEDS ORDERED: POTASSIUM CHLORIDE 20 MEQ TABLET.SA PO ONE (22:44)
--- NOTE | 2020-02-29 22:47 | HP ---
Chief Complaint - Chief Complaint Date of Service: 02/29/20 Time of Service: 22:29 Chief Complaint: Patient is confused and nonverbal History of Present Illness: 59-year-old female with past medical history of anxiety disorder, alcoholism, endometriosis, sleep disturbance, and hyperlipidemia was brought to the ER by EMS for an apparent new onset seizure that occurred in her home this afternoon. Patient has a long history with alcohol abuse and was recently hospitalized for the treatment of a UTI and went a prolonged period of time without alcohol consumption. Her significant other also reported that she did not consume alcohol once discharged home. Subsequently the patient suffered a generalized seizure after being discovered on the floor, she suffered another seizure in the ambulance on the way to the hospital. Once in the ER the patient was noted to be obtunded but eventually woke up but was post ictal. She was then placed on seizure precaution and on alcohol withdrawal protocol. She tested positive for opioids although it is not clear where she obtained and also benzodiazepine due to her chronic use of Xanax to treat anxiety. Patient presented with stable vitals and so far has not had any recurrence of seizures. Medical History (Last Reviewed 02/29/20 @ 19:18 by Zee Holland RN) Hypertension (Chronic) Onset Date: ~01/15/14 Hyperlipidemia (Chronic) Onset Date: ~01/15/14 Anxiety Onset Date: Unknown Elevated ALT measurement Onset Date: 10/26/16 Patient was taking terbinafine at time of lab draw. Elevated aspartate aminotransferase level Onset Date: 10/26/16 Patient was taking terbinafine at time of lab draw. Sleep disturbance Onset Date: Unknown Endometriosis Onset Date: ~1993 History of barium enema Onset Date: 09/15/17 Dr. Jersey Blankenship [facility]. Diverticulosis, moderate tortuosity and elongation of the colonic segments. Tinea unguium Onset Date: ~10/26/16 Surgical History: Surgical History (Last Reviewed 02/29/20 @ 15:19 by Genesis Lozano MD) History of adenoidectomy Onset Date: ~1978 History of section History of colonoscopy Onset Date: 09/15/17 Dr. Jersey Blankenship [facility]. Incomplete. Tortuous colon, Diverticulosis. Barium enema-negative. History of excision of epidermal inclusion cyst Onset Date: 04/21/17 Dr. Mendoza Bagan, [facility]. Right groin; dermal inflammation consistent w/ hidradenitis, associated with multiple epidermal inclusion cysts. History of local excision of skin lesion Onset Date: 07/08/11 Right medial chest; dysplastic nevus. History of tonsillectomy Onset Date: ~1978 History of vaginal hysterectomy Onset Date: ~1994 Family History: Family History (Last Reviewed 02/29/20 @ 19:18 by Zee Holland RN) Father Hypertension Obesity Prostate disease Pacemaker S/P CABG x 5 Brother CHF (congestive heart failure) Myocardial infarction CVA (cerebral vascular accident) Brother Alive and well x 1 Mother , age 62 Myocardial infarction x 3 Heart disease Hypertension Hyperlipemia DVT (deep venous thrombosis) CHF (congestive heart failure) COPD (chronic obstructive pulmonary disease) Family/Other Hyperlipemia Heart disease CVA (cerebral vascular accident) Hypertension Pacemaker Prostate disease Social History: (Last Updated 02/29/20 @ 15:20 by Genesis Lozano MD) Social History: adopted: No longterm: No Marital status: / household members: significant other number of children: 1 current occupational status: employed current occupation: [employer] Highest education level completed: Associate degree: academi Sexually Active: Yes Service: No Tobacco: Smoking Status: Former smoker Alcohol: alcohol intake: current Alcohol type: hard liquor alcohol intake frequency: 3 or more drinks per day Dietary Habits: caffeine: No Peds Patient Hx - Developmental: No Pertinent Hx Peds Patient Hx - Medical: No Pertinent Hx Peds Patient Hx - Cardiac/Respiratory: No Pertinent Hx Peds Patient Hx - Surgical: No Surgical History Patient History - Cancer: No Hx of Cancer Review Of Systems (GEN) - Review of Systems Generalized/Overall Review: Present: Weakness EENTM: Present: No Symptoms Reported Respiratory: Present: No Symptoms Reported Cardiac: Present: No Symptoms Reported Abdominal: Present: No Symptoms Reported Genitourinary: Present: No Symptoms Reported Musculoskeletal: Present: No Symptoms Reported Neurological: Present: Anxiety, Seizure Skin: Present: No Symptoms Reported Endocrine: Present: No Symptoms Reported Immunizations: IMMUNIZATION HX Immunizations Up to Date Yes History of Influenza Vaccine More Information Required Hx Pneumococcal Vaccination More Information Required Allergies/Adverse Reactions: Allergies Allergy/AdvReac Type Severity Reaction Status Date / Time Sulfa (Sulfonamide Allergy Intermediate Shortness Verified 02/27/20 16:02 Antibiotics) of Breath acetaminophen [From Percocet] AdvReac Mild Itching Verified 02/27/20 16:02 oxycodone [From Percocet] AdvReac Mild Itching Verified 02/27/20 16:02 Penicillins AdvReac Mild Itching Verified 02/27/20 16:02 Home Medications: HOME MEDICATIONS Aspirin [Aspirin EC] 81 mg PO DAILY 04/18/17 [Last Taken 02/20/20] Cholecalciferol (Vitamin D3) [Vitamin D3] 1,000 unit PO DAILY 04/18/17 [Last Taken 02/20/20] Multivitamins [Multivitamin Meredith] 1 cap PO DAILY 04/18/17 [Last Taken 02/20/20] Arrington-3S/Dha/Epa/Fish Oil [Fish Oil 1,200 mg Softgel] 1 ea PO DAILY 08/22/17 [Last Taken 02/20/20] alprazolam 1 mg tablet 1 mg PO TID PRN #90 tab 07/26/19 [Last Taken 02/27/20 08:00] rosuvastatin 10 mg tablet 10 mg PO DAILY #30 tab 11/15/19 [Last Taken 02/26/20 20:00] Levofloxacin [Levaquin] 750 mg PO DAILY@1400 #7 tab 02/28/20 [Last Taken Unknown] Ondansetron HCl [Zofran] 8 mg PO Q6H #30 tab 02/28/20 [Last Taken Unknown] Exam - Exam Vital Signs: Vital Signs - Last Taken Temp 37.1 C 02/29/20 19:30 Pulse 100 02/29/20 19:30 Resp 20 02/29/20 19:30 BP 133/77 02/29/20 19:30 Pulse Ox 97 02/29/20 19:30 Constitutional: Present: Alert, Cooperative, Well developed, Well nourished, No distress, Other - Patient appears very confused and has a tremor, Elderly, Looks Older than stated age ENT Exam: Present: normal ENT inspection, hearing grossly normal Eye Exam: bilateral eye: normal inspection, PERRL, EOMI Neck: Present: non-tender, full range of motion, supple, normal inspection, trachea midline Back Exam: Present: normal inspection, no CVA tenderness, no vertebral tenderness Breasts: Present: Exam deferred Respiratory: Present: chest non-tender, lungs clear, normal breath sounds, no respiratory distress, no accessory muscle use Cardiovascular/Chest: Present: normal peripheral pulses, regular rate, rhythm, no chest tenderness, no edema, no gallop, no JVD, no murmur, no rub Peripheral Pulses: carotid (R): 3+, carotid (L): 3+, femoral (R): 3+, femoral (L): 3+, dorsalis-pedis (R): 3+, dorsalis-pedis (L): 3+ Abdomen: Present: Normal bowel sounds, soft, nontender, nondistended, no rebound tenderness, no hepatospenomegaly, no masses /Rectal: Present: Exam deferred Extremity: Present: normal range of motion, non-tender, normal inspection, no pedal edema, no calf tenderness, normal capillary refill, pelvis stable Skin Exam: Present: normal color, warm/dry, no cyanosis Lymphatic: Present: no adenopathy 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, no motor/sensory deficits, alert, depressed affect, disoriented x 3, other - Significant tremor Appearance: Present: no memory impairment, disheveled, impaired insight, impaired recent memory, impaired remote memory Eye contact: Present: cooperative, normal speech, refused to answer, decreased rate of speech, belligerent Thoughts: Present: delusions Diagnostic Studies: Abnormal Lab Results 02/29/20 02/29/20 02/29/20 Range/Units 15:08 15:08 15:55 RBC 3.55 L (4.2-5.4) M/mm3 MCV 107.6 H (78-100) fl MCH 36.1 H (27-31) pg Plt Count 80 L (150-450) K/mm3 Immature Gran % (Auto) 1.40 H (0.001-0.429) % Immature Gran # (Auto) 0.07 H (0.000-0.0310) K/mm3 Lymphocytes % 18.8 L (20-51) % Monocytes % 16.6 H (0.0-9) % Lymphocytes # 0.94 L (1.5-3.5) k/mm3 Potassium 2.9 L (3.4-4.6) mmol/L Chloride 96 L (97-106) mmol/L Carbon Dioxide 18.4 L (24-32.6) mmol/L Anion Gap 23.5 H (6.8-13.8) mmol/L Est GFR (Non-Af Amer) 59 L D (60-130) mL/min BUN/Creatinine Ratio 3.9 L (9.0-21.6) Random Glucose 159 H (70-110) mg/dL AST 99 H (0-48) U/L ALT 69 H (19-67) U/L Urine Protein 100 H (NEGATIVE) mg/dL Urine Blood 25 H (NEGATIVE) /ul Prot Sulfosalicylic Acd 3+ H (0) mg/dL Urine Opiates Screen (NEGATIVE) U Benzodiazepines Scrn (NEGATIVE) 02/29/20 Range/Units 15:55 RBC (4.2-5.4) M/mm3 MCV (78-100) fl MCH (27-31) pg Plt Count (150-450) K/mm3 Immature Gran % (Auto) (0.001-0.429) % Immature Gran # (Auto) (0.000-0.0310) K/mm3 Lymphocytes % (20-51) % Monocytes % (0.0-9) % Lymphocytes # (1.5-3.5) k/mm3 Potassium (3.4-4.6) mmol/L Chloride (97-106) mmol/L Carbon Dioxide (24-32.6) mmol/L Anion Gap (6.8-13.8) mmol/L Est GFR (Non-Af Amer) (60-130) mL/min BUN/Creatinine Ratio (9.0-21.6) Random Glucose (70-110) mg/dL AST (0-48) U/L ALT (19-67) U/L Urine Protein (NEGATIVE) mg/dL Urine Blood (NEGATIVE) /ul Prot Sulfosalicylic Acd (0) mg/dL Urine Opiates Screen Positive H (NEGATIVE) U Benzodiazepines Scrn Positive H (NEGATIVE) Laboratory Results WBC 5.0 K/mm3 (4.0-10.5) 02/29/20 15:08 RBC 3.55 M/mm3 (4.2-5.4) L 02/29/20 15:08 Hgb 12.8 gm/dL (12.5-16.0) 02/29/20 15:08 Hct 38.2 % (37.0-47.0) 02/29/20 15:08 MCV 107.6 fl (78-100) H 02/29/20 15:08 MCH 36.1 pg (27-31) H 02/29/20 15:08 MCHC 33.5 g/dl (32-36) 02/29/20 15:08 RDW 13.4 % (11.5-14.0) 02/29/20 15:08 Plt Count 80 K/mm3 (150-450) L 02/29/20 15:08 MPV 9.5 fl (8-12.5) 02/29/20 15:08 Immature Gran % (Auto) 1.40 % (0.001-0.429) H 02/29/20 15:08 Immature Gran # (Auto) 0.07 K/mm3 (0.000-0.0310) H 02/29/20 15:08 Neutrophils % 62.2 % (42-75.0) 02/29/20 15:08 Lymphocytes % 18.8 % (20-51) L 02/29/20 15:08 Monocytes % 16.6 % (0.0-9) H 02/29/20 15:08 Eosinophils % 0.4 % (0.0-3.0) 02/29/20 15:08 Basophils % 0.6 % (0.0-1.0) 02/29/20 15:08 Nucleated RBC % 0.0 k/mm3 (0-1) 02/29/20 15:08 Neutrophils # 3.1 K/mm3 (1.3-6.0) 02/29/20 15:08 Lymphocytes # 0.94 k/mm3 (1.5-3.5) L 02/29/20 15:08 Monocytes # 0.8 k/mm3 (0.0-1.0) 02/29/20 15:08 Eosinophils # 0.0 k/mm3 (0.0-0.7) 02/29/20 15:08 Absolute Basophils 0.0 k/mm3 (0.0-0.1) 02/29/20 15:08 Sodium 135 mmol/L (132-142) 02/29/20 15:08 Plasma Sodium 136 mmol/L (130-142) 02/29/20 15:08 Potassium 2.9 mmol/L (3.4-4.6) L 02/29/20 15:08 Chloride 96 mmol/L (97-106) L 02/29/20 15:08 Carbon Dioxide 18.4 mmol/L (24-32.6) L 02/29/20 15:08 Anion Gap 23.5 mmol/L (6.8-13.8) H 02/29/20 15:08 BUN 4 mg/dL (3-23) 02/29/20 15:08 Creatinine 1.02 mg/dL (0.4-1.4) 02/29/20 15:08 Est GFR (Non-Af Amer) 59 mL/min (60-130) L D 02/29/20 15:08 BUN/Creatinine Ratio 3.9 (9.0-21.6) L 02/29/20 15:08 Random Glucose 159 mg/dL (70-110) H 02/29/20 15:08 Calcium 9.2 mg/dL (7.9-10.9) 02/29/20 15:08 Calcium Adj for Albumin 9.4 mg/dL (8.4-10.2) 02/29/20 15:08 Total Bilirubin 1.0 mg/dL (0.0-1.1) 02/29/20 15:08 AST 99 U/L (0-48) H 02/29/20 15:08 ALT 69 U/L (19-67) H 02/29/20 15:08 Alkaline Phosphatase 69 U/L (50-170) 02/29/20 15:08 C-Reactive Prot, Quant 0.6 mg/dL (0.0-0.9) 02/29/20 15:08 Total Protein 7.6 gm/dL (6.2-8.2) 02/29/20 15:08 Albumin 3.4 gm/dl (3.4-5.0) 02/29/20 15:08 Urine Color Yellow 02/29/20 15:55 Urine Appearance Clear (CLEAR) 02/29/20 15:55 Urine pH 6.0 pH (5.0-7.0) 02/29/20 15:55 Ur Specific [place] 1.030 SP.GR. (1.005-1.010) 02/29/20 15:55 Urine Protein 100 mg/dL (NEGATIVE) H 02/29/20 15:55 Urine Glucose (UA) Negative mg/dL (NEGATIVE) 02/29/20 15:55 Urine Ketones 50 mg/dL (NEGATIVE) 02/29/20 15:55 Urine Blood 25 /ul (NEGATIVE) H 02/29/20 15:55 Urine Nitrate Negative (NEGATIVE) 02/29/20 15:55 Urine Bilirubin Negative mg/dl (NEGATIVE) 02/29/20 15:55 Prot Sulfosalicylic Acd 3+ mg/dL (0) H 02/29/20 15:55 Urine Urobilinogen Normal EU/dl (NORMAL) 02/29/20 15:55 Ur Leukocyte Esterase Negative /ul (NEGATIVE) 02/29/20 15:55 Urine RBC 0-5 /hpf (0-5) 02/29/20 15:55 Urine WBC 0-5 /hpf (0-5) 02/29/20 15:55 Ur Epithelial Cells 0-5 /hpf (0-5) 02/29/20 15:55 Urine Bacteria None seen (NONE) 02/29/20 15:55 Urine Culture Comments No culture indicated 02/29/20 15:55 Urine Opiates Screen Positive (NEGATIVE) H 02/29/20 15:55 Barbiturate Screen Negative (NEGATIVE) 02/29/20 15:55 Ur Phencyclidine Scrn Negative (NEGATIVE) 02/29/20 15:55 Urine Amphetamine Negative (NEGATIVE) 02/29/20 15:55 U Benzodiazepines Scrn Positive (NEGATIVE) H 02/29/20 15:55 Urine Cocaine Screen Negative (NEGATIVE) 02/29/20 15:55 Urine Marijuana (THC) Negative (NEGATIVE) 02/29/20 15:55 Ethyl Alcohol 3.0 mg/dL (0.0-10.0) 02/29/20 15:08 Assessment/Plan - Narrative Narrative: Patient was evaluated medical chart was reviewed and decision to admit for alcohol withdrawal seizure, delirium tremens, alcoholism was made. Patient is currently awake and alert but disoriented x3 she appears confused and is unable to answer any questions. She has a tremor most likely secondary to the alcohol withdrawal but has not presented seizure since arriving to the floor. Alcohol withdrawal protocol as well as seizure precautions have been ordered and the patient's guardrails have been raised and cushioned in case of seizure. She is currently cooperative and does not show any signs of aggression but appears tired and weak. We will continue to monitor her closely for recurrence of seizure and benzodiazepines have been ordered to be administered in case of seizure recurrence. Labs on admission demonstrate hypokalemia therefore should be administered upon potassium replacement. We will reevaluate the patient with labs in the morning. - Assessment/Plan (1) Delirium tremens Problem: Acute (2) New onset seizure Problem: Acute (3) ETOH abuse Problem: Acute (4) Hypokalemia Problem: Acute (5) Anxiety disorder Problem: Chronic (6) Elevated liver enzymes Problem: Acute
[2020-03-01] MEDS: ONDANSETRON HCL 8 MG TABLET PO SCH ×4 (04:26→23:29)
[2020-03-01] MEDS: NORMAL SALINE 1,000 ML IV ONE (06:26)
[2020-03-01] MEDS: ACETAMINOPHEN 500 MG TABLET PO PRN ×2 (06:30→14:03)
[2020-03-01] MEDS: PANTOPRAZOLE SODIUM 20 MG TABLET.DR PO SCH ×2 (06:31→20:20)
[2020-03-01] MEDS: LORazepam 2 MG/ML DISP.SYRIN IV PRN ×2 (06:31→15:51)
[2020-03-01 07:12] LABS: Albumin * 2.9 gm/dl (3.4-5.0); Anion Gap 9.8 mmol/L (6.8-13.8); Bilirubin, Total 0.8 mg/dL (0.0-1.1); Ca. Corrected For Albumin 9.1 mg/dL (8.4-10.2); Calcium * 8.5 mg/dL (7.9-10.9); Carbon Dioxide 28.4 mmol/L (24-32.6); Potassium 3.2 mmol/L (3.4-4.6); Total Protein 6.3 gm/dL (6.2-8.2)
[2020-03-01] MEDS ORDERED: THIAMINE HCL 100 MG in NORMAL SALINE 50 ML IV SCH (09:00)
[2020-03-01] MEDS: ASPIRIN 81 MG TABLET.DR PO SCH (09:55)
[2020-03-01] MEDS: FOLIC ACID 1 MG TABLET PO SCH (09:55)
[2020-03-01] MEDS: CHOLECALCIFEROL 1,000 UNIT CAPSULE PO SCH (09:55)
[2020-03-01] MEDS: OMEGA-3 FATTY ACIDS 1 CAP CAPSULE PO SCH (09:55)
[2020-03-01] MEDS: MULTIVITAMINS 1 CAP CAPSULE PO SCH (09:56)
[2020-03-01] MEDS ORDERED: POTASSIUM CHLORIDE 20 MEQ TABLET.SA PO ONE (12:46)
[2020-03-01] MEDS ORDERED: THIAMINE HCL 500 MG in NORMAL SALINE 50 ML IV SCH (13:15)
--- NOTE | 2020-03-01 13:37 | PN ---
Subjective - Date and Time Seen Date: 03/01/20 Time: 13:26 Subjective Narrative: Patient is confused and confabulating, speech is incoherent. Objective Objective Narrative: 59-year-old female admitted for delirium tremens due to alcohol withdrawal, chronic alcohol abuse, and a new onset seizure was evaluated at bedside and was found to be afebrile and in no acute distress. Patient is fully awake this morning however she is extremely confused and her speech is incoherent. It is very obvious that she does not understand commands and has severe aphasia. She is accompanied by her significant other who lives with her and he is very tearful to see her in the state. When asked he says he has never seen her like this and he has noticed knowledge of any history of neurological disorders. He is the one that witnessed the seizure that occurred yesterday in her home and also in the ambulance on the way to the hospital and he said it lasted about a minute, it was a very traumatizing event for him. He explains that the patient's drinking has gotten worse throughout the years and 2 months ago she was laid off from her job due to problems related with her drinking. Recently she started drinking throughout all hours of the day and she would drink about a bottle of vodka in 2 days. Patient was recently hospitalized a few days ago and was treated for UTI and was then discharged, during that time she was without any alcohol so it is certain that she is going through withdrawal. Thankfully the patient has had no recurrence of seizure since arriving to [facility], however anticonvulsants were ordered to be used on a as needed basis. Patient is also receiving IV hydration and thiamine supplements to cover for any thiamine deficiency. After evaluating the patient at bedside this morning there is a high suspicion of Wernicke encephalopathy and although head CT done in the ER was negative for any acute findings, I will order a brain MRI for close follow-up. - Review of Systems Generalized/Overall Review: Reports: No Symptoms Reported EENTM: Reports: No Symptoms Reported Respiratory: Reports: No Symptoms Reported Cardiac: Reports: No Symptoms Reported Abdominal: Reports: No Symptoms Reported Genitourinary Symptoms: Reports: No Symptoms Reported Musculoskeletal Complaints: Reports: No Symptoms Reported Neurological: Reports: Other - Dysarthria, and confusion. Denies: Seizure Skin: Reports: No Symptoms Reported Endocrine: Reports: No Symptoms Reported - Vitals Vitals: Last Vital Signs Temp 37.6 C 03/01/20 10:00 Pulse 92 03/01/20 10:00 Resp 20 03/01/20 10:00 BP 134/77 03/01/20 10:00 Pulse Ox 100 03/01/20 10:00 - Abnormal Lab Findings Abnormal Lab Findings: Abnormal Lab Results 02/29/20 02/29/20 02/29/20 Range/Units 15:08 15:08 15:55 RBC 3.55 L (4.2-5.4) M/mm3 MCV 107.6 H (78-100) fl MCH 36.1 H (27-31) pg Plt Count 80 L (150-450) K/mm3 Immature Gran % (Auto) 1.40 H (0.001-0.429) % Immature Gran # (Auto) 0.07 H (0.000-0.0310) K/mm3 Lymphocytes % 18.8 L (20-51) % Monocytes % 16.6 H (0.0-9) % Lymphocytes # 0.94 L (1.5-3.5) k/mm3 Potassium 2.9 L (3.4-4.6) mmol/L Chloride 96 L (97-106) mmol/L Carbon Dioxide 18.4 L (24-32.6) mmol/L Anion Gap 23.5 H (6.8-13.8) mmol/L BUN (3-23) mg/dL Est GFR (Non-Af Amer) 59 L D (60-130) mL/min BUN/Creatinine Ratio 3.9 L (9.0-21.6) Random Glucose 159 H (70-110) mg/dL AST 99 H (0-48) U/L ALT 69 H (19-67) U/L Albumin (3.4-5.0) gm/dl Urine Protein 100 H (NEGATIVE) mg/dL Urine Blood 25 H (NEGATIVE) /ul Prot Sulfosalicylic Acd 3+ H (0) mg/dL Urine Opiates Screen (NEGATIVE) U Benzodiazepines Scrn (NEGATIVE) 02/29/20 03/01/20 Range/Units 15:55 06:15 RBC (4.2-5.4) M/mm3 MCV (78-100) fl MCH (27-31) pg Plt Count (150-450) K/mm3 Immature Gran % (Auto) (0.001-0.429) % Immature Gran # (Auto) (0.000-0.0310) K/mm3 Lymphocytes % (20-51) % Monocytes % (0.0-9) % Lymphocytes # (1.5-3.5) k/mm3 Potassium 3.2 L (3.4-4.6) mmol/L Chloride (97-106) mmol/L Carbon Dioxide (24-32.6) mmol/L Anion Gap (6.8-13.8) mmol/L BUN 2 L (3-23) mg/dL Est GFR (Non-Af Amer) (60-130) mL/min BUN/Creatinine Ratio 3.0 L (9.0-21.6) Random Glucose (70-110) mg/dL AST 84 H (0-48) U/L ALT (19-67) U/L Albumin 2.9 L (3.4-5.0) gm/dl Urine Protein (NEGATIVE) mg/dL Urine Blood (NEGATIVE) /ul Prot Sulfosalicylic Acd (0) mg/dL Urine Opiates Screen Positive H (NEGATIVE) U Benzodiazepines Scrn Positive H (NEGATIVE) - Exam Constitutional: Present: Alert, Well developed, No distress, Other - Patient appears confused, she does not understand commands, and her speech is incoherent. She has an apparent aphasia and dysarthria., Elderly ENT Exam: Present: normal ENT inspection, hearing grossly normal, pharynx normal, TMs normal Neck: Present: non-tender, full range of motion, supple, normal inspection, trachea midline Breasts: Present: Exam deferred Respiratory: Present: chest non-tender, lungs clear, normal breath sounds, no respiratory distress, no accessory muscle use Cardiovascular/Chest: Present: normal peripheral pulses, regular rate, rhythm, no chest tenderness, no edema, no gallop, no JVD, no murmur, no rub Abdomen: Present: Normal bowel sounds, soft, nontender, nondistended, no rebound tenderness, no hepatospenomegaly, no masses /Rectal: Present: Exam deferred Extremity: Present: normal range of motion, non-tender, normal inspection, no pedal edema, no calf tenderness, normal capillary refill, pelvis stable Skin Exam: Present: normal color, warm/dry, no cyanosis Lymphatic: Present: no adenopathy Neurologic: Present: alert, abnormal cerebellar tests, 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 I have also ordered magnesium levels to rule out hypomagnesemia which is common in chronic alcoholics and to optimize thiamine absorption. Thiamine dose has been increased for prevention or treatment of Wernicke's encephalopathy. We also ordered additional potassium replacement for ongoing hypokalemia. Patient was provided with a regular diet but did not eat much but she appears to tolerate oral intake without any issues. We will continue to monitor her closely. - Problems/Diagnosis (1) Delirium tremens Problem: Acute (2) New onset seizure Problem: Acute (3) ETOH abuse Problem: Acute (4) Hypokalemia Problem: Acute (5) Anxiety disorder Problem: Chronic (6) Elevated liver enzymes Problem: Acute (7) Wernicke encephalopathy Problem: Suspected
[2020-03-01] MEDS: THIAMINE HCL 200 MG in NORMAL SALINE 50 ML IV SCH ×2 (13:39→19:15)
[2020-03-01] MEDS: LEVOFLOXACIN 750 MG TABLET PO SCH (13:40)
[2020-03-01] MEDS: ROSUVASTATIN CALCIUM 10 MG TABLET PO SCH (20:20)
[2020-03-02] MEDS: ONDANSETRON HCL 8 MG TABLET PO SCH ×4 (04:05→21:51)
[2020-03-02] MEDS: PANTOPRAZOLE SODIUM 20 MG TABLET.DR PO SCH ×2 (06:42→21:01)
[2020-03-02 07:02] LABS: Anion Gap 15.2 mmol/L (6.8-13.8); BUN/Creatinine Ratio 3.1 (9.0-21.6); Bilirubin, Total 0.9 mg/dL (0.0-1.1); Ca. Corrected For Albumin 9.5 mg/dL (8.4-10.2); Carbon Dioxide 23.3 mmol/L (24-32.6); Potassium 3.5 mmol/L (3.4-4.6); Total Protein 6.7 gm/dL (6.2-8.2)
[2020-03-02] MEDS: MULTIVITAMINS 1 CAP CAPSULE PO SCH (08:33)
[2020-03-02] MEDS: LORazepam 2 MG/ML DISP.SYRIN IV PRN (08:33)
[2020-03-02] MEDS: ASPIRIN 81 MG TABLET.DR PO SCH (08:34)
[2020-03-02] MEDS: FOLIC ACID 1 MG TABLET PO SCH (08:34)
[2020-03-02] MEDS: OMEGA-3 FATTY ACIDS 1 CAP CAPSULE PO SCH (08:34)
[2020-03-02] MEDS: CHOLECALCIFEROL 1,000 UNIT CAPSULE PO SCH (08:34)
[2020-03-02] MEDS: levETIRAcetam 500 MG TABLET PO SCH ×2 (10:13→21:00)
[2020-03-02] MEDS: THIAMINE HCL 200 MG in NORMAL SALINE 50 ML IV SCH (10:15)
[2020-03-02] MEDS ORDERED: LORazepam 2 MG/ML DISP.SYRIN IM ONE (13:06)
[2020-03-02] MEDS: CLOPIDOGREL BISULFATE 75 MG TABLET PO SCH (14:30)
[2020-03-02] MEDS: NICOTINE 21 MG PATC TD SCH (14:42)
[2020-03-02] MEDS: LEVOFLOXACIN 750 MG TABLET PO SCH (14:42)
[2020-03-02] MEDS ORDERED: DIAZEPAM 5 MG TABLET PO ONE (20:17)
[2020-03-02] MEDS: ROSUVASTATIN CALCIUM 10 MG TABLET PO SCH (21:01)
--- NOTE | 2020-03-02 22:47 | PN ---
Subjective - Date and Time Seen Date: 03/02/20 Time: 11:00 Subjective Narrative: Korin has been confused, restless, and speaking in nonsensical words. She appears to have a conversation and anser questions but her responses are not real words except for a few. She is unable to follow spoken commands but can repeat things when shown. Review of systems is not possible. Objective - Vitals Vitals: Last Vital Signs Temp 37.5 C 03/02/20 20:46 Pulse 88 03/02/20 20:46 Resp 20 03/02/20 20:46 BP 138/81 03/02/20 20:46 Pulse Ox 97 03/02/20 20:46 - Abnormal Lab Findings Abnormal Lab Findings: Abnormal Lab Results 03/02/20 Range/Units 06:10 Carbon Dioxide 23.3 L (24-32.6) mmol/L Anion Gap 15.2 H (6.8-13.8) mmol/L BUN 2 L (3-23) mg/dL BUN/Creatinine Ratio 3.1 L (9.0-21.6) AST 65 H (0-48) U/L Albumin 3.0 L (3.4-5.0) gm/dl - Exam Constitutional: Present: Alert. Absent: Oriented x3, Cooperative Respiratory: Present: lungs clear, normal breath sounds Cardiovascular/Chest: Present: regular rate, rhythm, no edema, no murmur Abdomen: Present: Normal bowel sounds, soft, nontender, nondistended Skin Exam: Present: normal color, warm/dry, no cyanosis Neurologic: Present: other - She strings together a series of meaningless words that sound like a sentence, she is unable to follow verbal commands but can repeat something shown Assessment/Plan Plan Narrative: Korin is a 59 yo female with : 1) New onset seizure - Witnessed at having a seizure, suspected to be related to alcohol withdrawal. She was placed on ativan based on CIWA. She was started on keppra 500mg BID. Continue ativan based on CIWA. Will need to follow up with neurology. 2) Wernicke's Encephalopathy with Wernicke's Aphasia - Mostly related to alcoholism. Treat with thiamine. 3) Stroke - Due to altered mentation a MRI was obtained today which shows evdience of acute /subacute stroke. Started on plavix, continue statin. Will evaluate with carotid duplex. 4) Recent UTI, still being treated on levaquin. - Problems/Diagnosis (1) Stroke Problem: Acute (2) Wernicke encephalopathy Problem: Acute (3) Alcohol withdrawal Problem: Acute Qualifiers: Complication of substance-induced condition: with delirium Qualified Code(s): F10.231 - Alcohol dependence with withdrawal delirium (4) Delirium tremens Problem: Acute (5) New onset seizure Problem: Acute (6) ETOH abuse Problem: Chronic
[2020-03-03] MEDS: ALPRAZolam 1 MG TABLET PO PRN ×2 (01:18→06:48)
[2020-03-03] MEDS: ONDANSETRON HCL 8 MG TABLET PO SCH ×4 (04:06→22:26)
[2020-03-03 06:32] LABS: Hematocrit 37.2 % (37.0-47.0); Hemoglobin 12.9 gm/dL (12.5-16.0); Mean Cell Volume 105.7 fl (78-100); Mean Corpuscular Hemoglobin 36.6 pg (27-31); Mean Corpuscular Hgb Conc 34.7 g/dl (32-36); Mean Platelet Volume 9.2 fl (8-12.5); Neutrophil # 3.5 K/mm3 (1.3-6.0); Neutrophil % 55.6 % (42-75.0); Platelet Count 124 K/mm3 (150-450); Red Blood Count 3.52 M/mm3 (4.2-5.4); Red Cell Distribution Width 13.4 % (11.5-14.0); White Blood Count 6.2 K/mm3 (4.0-10.5)
[2020-03-03] MEDS: PANTOPRAZOLE SODIUM 20 MG TABLET.DR PO SCH ×2 (06:48→21:01)
[2020-03-03 06:51] LABS: Anion Gap 12.3 mmol/L (6.8-13.8); BUN/Creatinine Ratio 7.5 (9.0-21.6); Bilirubin, Total 1.1 mg/dL (0.0-1.1); Calcium * 9.5 mg/dL (7.9-10.9); Carbon Dioxide 28.4 mmol/L (24-32.6); Potassium 2.7 mmol/L (3.4-4.6); Total Protein 6.9 gm/dL (6.2-8.2)
[2020-03-03] MEDS: THIAMINE HCL 100 MG TABLET PO SCH (08:36)
[2020-03-03] MEDS: levETIRAcetam 500 MG TABLET PO SCH ×2 (08:36→21:00)
[2020-03-03] MEDS: OMEGA-3 FATTY ACIDS 1 CAP CAPSULE PO SCH (08:36)
[2020-03-03] MEDS: CHOLECALCIFEROL 1,000 UNIT CAPSULE PO SCH (08:36)
[2020-03-03] MEDS: MULTIVITAMINS 1 CAP CAPSULE PO SCH (08:37)
[2020-03-03] MEDS: CLOPIDOGREL BISULFATE 75 MG TABLET PO SCH (08:37)
[2020-03-03] MEDS: FOLIC ACID 1 MG TABLET PO SCH (08:37)
[2020-03-03] MEDS: NICOTINE 21 MG PATC TD SCH (13:50)
[2020-03-03] MEDS: LEVOFLOXACIN 750 MG TABLET PO SCH (13:50)
[2020-03-03] MEDS ORDERED: POTASSIUM CHLORIDE 20 MEQ TABLET.SA PO ONE (21:00)
[2020-03-03] MEDS: ROSUVASTATIN CALCIUM 10 MG TABLET PO SCH (21:00)
--- NOTE | 2020-03-03 23:53 | PN ---
Subjective - Date and Time Seen Date: 03/03/20 Time: 08:45 Subjective Narrative: Korin spoke a little more understandable words today, but still lots of unknown words. She does seem to understand what I say and appears to be responding appropriately although the sounds coming from her mouth are not true words. Therefore ROS is difficult. I did understand that she wants to go home. Objective - Vitals Vitals: Last Vital Signs Temp 36.7 C 03/03/20 18:00 Pulse 93 03/03/20 18:00 Resp 18 03/03/20 18:00 BP 136/74 03/03/20 18:00 Pulse Ox 99 03/03/20 18:00 - Abnormal Lab Findings Abnormal Lab Findings: Abnormal Lab Results 03/03/20 03/03/20 Range/Units 06:29 06:29 RBC 3.52 L (4.2-5.4) M/mm3 MCV 105.7 H (78-100) fl MCH 36.6 H (27-31) pg Plt Count 124 L (150-450) K/mm3 Immature Gran % (Auto) 1.30 H (0.001-0.429) % Immature Gran # (Auto) 0.08 H (0.000-0.0310) K/mm3 Monocytes % 20.8 H (0.0-9) % Lymphocytes # 1.29 L (1.5-3.5) k/mm3 Monocytes # 1.3 H (0.0-1.0) k/mm3 Potassium 2.7 L D (3.4-4.6) mmol/L BUN/Creatinine Ratio 7.5 L (9.0-21.6) AST 65 H (0-48) U/L Albumin 3.0 L (3.4-5.0) gm/dl - Exam Constitutional: Present: Alert. Absent: Oriented x3 Respiratory: Present: lungs clear, normal breath sounds, no respiratory distress Cardiovascular/Chest: Present: regular rate, rhythm, no edema, no murmur Abdomen: Present: Normal bowel sounds, soft, nontender, nondistended Skin Exam: Present: normal color, warm/dry, no cyanosis Assessment/Plan Plan Narrative: A little better today. Potassium down, will replace and monitor. Looking into inpatient rehab for stroke. She is not safe to discharge to home. - Problems/Diagnosis (1) Stroke Problem: Acute (2) Wernicke encephalopathy Problem: Acute (3) Alcohol withdrawal Problem: Acute Qualifiers: Complication of substance-induced condition: with delirium Qualified Code(s): F10.231 - Alcohol dependence with withdrawal delirium (4) Delirium tremens Problem: Acute (5) New onset seizure Problem: Acute (6) ETOH abuse Problem: Chronic
[2020-03-04] MEDS: ONDANSETRON HCL 8 MG TABLET PO SCH (05:19)
[2020-03-04] MEDS: PANTOPRAZOLE SODIUM 20 MG TABLET.DR PO SCH (07:48)
[2020-03-04 08:09] LABS: Hematocrit 36.4 % (37.0-47.0); Hemoglobin 12.5 gm/dL (12.5-16.0); Mean Cell Volume 105.8 fl (78-100); Mean Corpuscular Hemoglobin 36.3 pg (27-31); Mean Corpuscular Hgb Conc 34.3 g/dl (32-36); Mean Platelet Volume 9.3 fl (8-12.5); Platelet Count 183 K/mm3 (150-450); Red Blood Count 3.44 M/mm3 (4.2-5.4); Red Cell Distribution Width 13.7 % (11.5-14.0); White Blood Count 7.2 K/mm3 (4.0-10.5)
[2020-03-04 08:18] LABS: Total Cells Counted 100
[2020-03-04 08:20] LABS: Albumin * 2.9 gm/dl (3.4-5.0); Anion Gap 11.1 mmol/L (6.8-13.8); Bilirubin, Total 0.9 mg/dL (0.0-1.1); Ca. Corrected For Albumin 9.9 mg/dL (8.4-10.2); Calcium * 9.3 mg/dL (7.9-10.9); Carbon Dioxide 29.2 mmol/L (24-32.6); Potassium 3.3 mmol/L (3.4-4.6); Total Protein 6.8 gm/dL (6.2-8.2)
[2020-03-04 09:05] LABS: Lymphocyte 8 % (20-51); Monocyte 21 % (0-9); Neutrophil 71 % (42-75); Neutrophil # 5.1 K/mm3 (1.3-6.0); Platelet Estimate Normal (NORMAL); RBC Morphology Normal (NORMAL)
[2020-03-04 09:06] LABS: Toxic Granulation Trace
[2020-03-04] MEDS: THIAMINE HCL 100 MG TABLET PO SCH (09:25)
[2020-03-04] MEDS: levETIRAcetam 500 MG TABLET PO SCH (09:25)
[2020-03-04] MEDS: OMEGA-3 FATTY ACIDS 1 CAP CAPSULE PO SCH (09:25)
[2020-03-04] MEDS: CLOPIDOGREL BISULFATE 75 MG TABLET PO SCH (09:25)
[2020-03-04] MEDS: MULTIVITAMINS 1 CAP CAPSULE PO SCH (09:25)
[2020-03-04] MEDS: FOLIC ACID 1 MG TABLET PO SCH (09:25)
[2020-03-04] MEDS: CHOLECALCIFEROL 1,000 UNIT CAPSULE PO SCH (09:25)
--- NOTE | 2020-03-04 10:01 | DS ---
(1) Stroke Problem: Acute Qualifiers: CVA mechanism: unspecified Qualified Code(s): I63.9 - Cerebral infarction, unspecified (2) Wernicke's aphasia Problem: Acute (3) Alcohol withdrawal Problem: Acute Qualifiers: Complication of substance-induced condition: with delirium Qualified Code(s): F10.231 - Alcohol dependence with withdrawal delirium (4) Delirium tremens Problem: Acute (5) New onset seizure Problem: Acute (6) ETOH abuse Problem: Chronic Date of Discharge:: 03/04/20 Hospital Course: Korin is a 59 yo female admitted for new onset seizure, confusion, and a wernicke's aphasia. She was treated with thiamine, ativan IV, and started on Keppra. She had a Brain MRI that showed "RESTRICTED DIFFUSION IDENTIFIED IN THE LEFT POSTERIOR TEMPORAL LOBE AND LEFT PARIETAL LOBE CONSISTENT WITH ACUTE/SUBACUTE ISCHEMIA/INFARCT". She had a normal carotid US. She was started on plavix. PT, OT, and ST were consulted. Initially her speech was a complete word salad with her own language of unrecognizable "words". She had difficulty following commands. Over time she has improved with following commands although she still has difficulty. Today she is able to understand taking pills and drinking but she has difficulty coordinating to physically put her pills in her mouth and "misses." She attempts to swallow with a straw but has difficulty coordinating all the movements needed to be successful. She was able to drink from a cup with only mild difficulty. Her speech remains a word salad but she more frequently uses appropriate words in the right context. She has stated that she wants to go home and does not appear to understand why it is unsafe for her to go home. She has been accepted to admission to [facility] and will be discharge today to their facility. Over night she has developed a new facial twitching. Her potassium was low and replaced. Her calcium is normal. She was recently treated for a UTI with levaquin, which does list hyperkinetic muscle activity as a possible side effect. She has completed her course of antibiotics and this will be stopped. She will be discharged later this morning and taken to [facility]. Procedures Performed: none Results and Findings: Lab Pending Results 02/29/20 15:08: WBC 5.0, RBC 3.55 L, Hgb 12.8, Hct 38.2, MCV 107.6 H, MCH 36.1 H, MCHC 33.5, RDW 13.4, Plt Count 80 L, MPV 9.5, Immature Gran % (Auto) 1.40 H, Immature Gran # (Auto) 0.07 H, Neutrophils % 62.2, Lymphocytes % 18.8 L, Monocytes % 16.6 H, Eosinophils % 0.4, Basophils % 0.6, Nucleated RBC % 0.0, Neutrophils # 3.1, Lymphocytes # 0.94 L, Monocytes # 0.8, Eosinophils # 0.0, Absolute Basophils 0.0 02/29/20 15:08: Sodium 135, Plasma Sodium 136, Potassium 2.9 L, Chloride 96 L, Carbon Dioxide 18.4 L, Anion Gap 23.5 H, BUN 4, Creatinine 1.02, Est GFR (Non-Af Amer) 59 L D, BUN/Creatinine Ratio 3.9 L, Random Glucose 159 H, Calcium 9.2, Calcium Adj for Albumin 9.4, Total Bilirubin 1.0, AST 99 H, ALT 69 H, Alkaline Phosphatase 69, C-Reactive Prot, Quant 0.6, Total Protein 7.6, Albumin 3.4, Ethyl Alcohol 3.0 02/29/20 15:55: Urine Color Yellow, Urine Appearance Clear, Urine pH 6.0, Ur Specific Grant 1.030, Urine Protein 100 H, Urine Glucose (UA) Negative, Urine Ketones 50, Urine Blood 25 H, Urine Nitrate Negative, Urine Bilirubin Negative, Prot Sulfosalicylic Acd 3+ H, Urine Urobilinogen Normal, Ur Leukocyte Esterase Negative, Urine RBC 0-5, Urine WBC 0-5, Ur Epithelial Cells 0-5, Urine Bacteria None seen, Urine Culture Comments No culture indicated 02/29/20 15:55: Urine Opiates Screen Positive H, Barbiturate Screen Negative, Ur Phencyclidine Scrn Negative, Urine Amphetamine Negative, U Benzodiazepines Scrn Positive H, Urine Cocaine Screen Negative, Urine Marijuana (THC) Negative 03/01/20 06:15: Sodium 139, Plasma Sodium 139, Potassium 3.2 L, Chloride 104, Carbon Dioxide 28.4, Anion Gap 9.8, BUN 2 L, Creatinine 0.66, Est GFR (Non-Af Amer) 98 D, BUN/Creatinine Ratio 3.0 L, Random Glucose 87 D, Calcium 8.5, Calcium Adj for Albumin 9.1, Total Bilirubin 0.8, AST 84 H, ALT 56, Alkaline Phosphatase 53, Total Protein 6.3, Albumin 2.9 L 03/01/20 06:50: Magnesium 1.4 03/02/20 06:10: Sodium 134, Plasma Sodium 134, Potassium 3.5, Chloride 99, Carbon Dioxide 23.3 L, Anion Gap 15.2 H, BUN 2 L, Creatinine 0.64, Est GFR (Non- Af Amer) 102, BUN/Creatinine Ratio 3.1 L, Random Glucose 92, Calcium 9.0, Calcium Adj for Albumin 9.5, Total Bilirubin 0.9, AST 65 H, ALT 50, Alkaline Phosphatase 53, Total Protein 6.7, Albumin 3.0 L 03/03/20 06:29: WBC 6.2 D, RBC 3.52 L, Hgb 12.9, Hct 37.2, MCV 105.7 H, MCH 36.6 H, MCHC 34.7, RDW 13.4, Plt Count 124 L, MPV 9.2, Immature Gran % (Auto) 1.30 H, Immature Gran # (Auto) 0.08 H, Neutrophils % 55.6, Lymphocytes % 20.8, Monocytes % 20.8 H, Eosinophils % 1.0, Basophils % 0.5, Nucleated RBC % 0.0, Neutrophils # 3.5, Lymphocytes # 1.29 L, Monocytes # 1.3 H, Eosinophils # 0.1, Absolute Basophils 0.0 03/03/20 06:29: Sodium 135, Plasma Sodium 135, Potassium 2.7 L D, Chloride 97, Carbon Dioxide 28.4, Anion Gap 12.3, BUN 6 D, Creatinine 0.80, Est GFR (Non-Af Amer) 79 D, BUN/Creatinine Ratio 7.5 L, Random Glucose 99, Calcium 9.5, Calcium Adj for Albumin 10.0, Total Bilirubin 1.1, AST 65 H, ALT 47, Alkaline Phosphatase 62, Total Protein 6.9, Albumin 3.0 L 03/04/20 07:29: WBC 7.2, RBC 3.44 L, Hgb 12.5, Hct 36.4 L, MCV 105.8 H, MCH 36.3 H, MCHC 34.3, RDW 13.7, Plt Count 183, MPV 9.3, Neutrophils % (Manual) 71, Lymphocytes % (Manual) 8 L, Monocytes % (Manual) 21 H, Neutrophils # (Manual) 5.1, Lymphocytes # (Manual) 0.6 L, Monocytes # (Manual) 1.5 H, Toxic Granulation Trace, Toxic Vacuolation Trace, Platelet Estimate Normal, RBC Morphology Normal 03/04/20 07:29: Sodium 136, Plasma Sodium 136, Potassium 3.3 L D, Chloride 99, Carbon Dioxide 29.2, Anion Gap 11.1, BUN 7, Creatinine 0.78, Est GFR (Non-Af Amer) 81, BUN/Creatinine Ratio 9.0, Random Glucose 111 H, Calcium 9.3, Calcium Adj for Albumin 9.9, Total Bilirubin 0.9, AST 54 H, ALT 43, Alkaline Phosphatase 61, Total Protein 6.8, Albumin 2.9 L Discharge Location: [facility] [place] Disposition: Inpatient Rehab Facility Condition: Stable Discharge Activity: Activity as tolerated Discharge Diet: General/regular food Referrals: Josue Caceres DO [Primary Care Provider] - (as needed after discharge from inpatient rehab.) Problem Oriented Discharge Instructions to Patient/Family: Aphasia Prescriptions (Any new or edited meds): Folic Acid 1 mg PO DAILY #30 tab Transmission Status: Pending to [place], [place] levETIRAcetam [Keppra] 500 mg PO BID #60 tab Transmission Status: Pending to [place], [place] Nicotine [Nicoderm] 21 mg TD Q24H #30 patch.td24 Transmission Status: Pending to [place] Clopidogrel Bisulfate [Plavix] 75 mg PO DAILY #30 tab Transmission Status: Pending to [place] Thiamine HCl [Vitamin B-1] 200 mg PO DAILY #60 tab Transmission Status: Pending to [place], [place] Complete Home Medications List: Complete Home Medication List: Aspirin [Aspirin EC] 81 mg PO DAILY 04/18/17 Cholecalciferol (Vitamin D3) [Vitamin D3] 1,000 unit PO DAILY 04/18/17 Multivitamins [Multivitamin Meredith] 1 cap PO DAILY 04/18/17 [place]-3S/Dha/Epa/Fish Oil [Fish Oil 1,200 mg Softgel] 1 ea PO DAILY 08/22/17 rosuvastatin 10 mg tablet 10 mg PO DAILY #30 tab 11/15/19 Ondansetron HCl [Zofran] 8 mg PO Q6H #30 tab 02/28/20 alprazolam 1 mg tablet 1 mg PO TID PRN #90 tab 03/03/20 ALPRAZolam [Xanax] 1 mg PO TID PRN tablet 03/04/20 Acetaminophen [Tylenol] 500 mg PO Q6H PRN tablet 03/04/20 Clopidogrel Bisulfate [Plavix] 75 mg PO DAILY #30 tab 03/04/20 Folic Acid 1 mg PO DAILY #30 tab 03/04/20 Nicotine [Nicoderm] 21 mg TD Q24H #30 patch.td24 03/04/20 Thiamine HCl [Vitamin B-1] 200 mg PO DAILY #60 tab 03/04/20 levETIRAcetam [Keppra] 500 mg PO BID #60 tab 03/04/20 Forms: Patient Portal Registration
[2020-03-04] MEDS: ALPRAZolam 1 MG TABLET PO PRN (10:48)
[2020-03-04 10:50] VITALS: BP 126/97
== END 2020-03-04 11:15 | disposition short-term general hospital (02) | DRG 65 ==
LOC: MS 14:57 → ER 14:57 → OBSVTOIN 17:08 → MS 17:32
PROVIDERS: ADMIT Family Medicine; ATTEND Family Medicine
CPT/HCPCS: 36415; 70450; 70551; 80053; 80307; 81001; 83735; 85007; 85025; 86140; 92523; 93880; 96365; 96366; 96367; 96375; 96376; 97116; 97162; 97165; 97530; 97535; 99285; G0378; J2405